=== PATIENT | female | born 1955 | race Caucasian/White ===

== ENCOUNTER 2024-11-18 08:21 | Outpatient (CLI) | payer OTHER, SELFPAY ==
[2024-11-18 08:43] LABS: Hematocrit 40.1 % (37.0-47.0); Hemoglobin 13.0 g/dL (12.0-15.0); Mean Corpuscular HGB Conc 32.4 g/dl (32-36); Mean Corpuscular Hemoglobin 28.7 pg (26-34); Mean Corpuscular Volume 88.5 fl (80-100); Platelet Count Result 269 k/mm3 (150-375); Red Blood Count 4.53 M/mm3 (4.2-5.4); White Blood Count 4.0 K/mm3 (4.5-10.0)
[2024-11-18 09:02] LABS: Alanine Aminotransferase 20 U/L (6-35); Albumin Level 4.2 g/dL (3.5-5.1); Alkaline Phosphatase 63 U/L (38-126); Anion Gap 8 mmol/L (4-12); Aspartate Amino Transferase 33 U/L (14-36); Bilirubin,Total 0.8 mg/dL (0.2-1.3); Blood Urea Nitrogen 11 mg/dL (7-17); Calcium 9.3 mg/dL (8.4-10.2); Carbon Dioxide 25 mmol/L (22-30); Chloride 105 mmol/L (98-107); Estimated Glomerular Filt Rate > 60; Glucose 99 mg/dL (65-110); Potassium 4.2 mmol/L (3.4-5.0); Sodium 138 mmol/L (137-145); Total Protein 7.1 g/dL (6.3-8.2)
[2024-11-18 09:10] LABS: Prealbumin 23.4 mg/dL (17.6-36.0)
[2024-11-18 09:11] LABS: Iron 133 ug/dL (37-170)
[2024-11-21 18:08] LABS: Vit. B1, Whole Blood 75.1 nmol/L (66.5-200.0)
== END 2024-11-18 08:22 | disposition home or self-care (01) ==
LOC: ANHLAB 08:25
PROVIDERS: PCP Family Medicine; Visit Provider Surgery Plastic and Reconstructive Surgery
DX: R63.4 Abnormal weight loss (principal)
CPT/HCPCS: 36415; 80053; 83540; 84134; 84425; 85027

== ENCOUNTER 2024-11-28 07:02 | Outpatient (CLI) | payer OTHER, SELFPAY ==
--- NOTE | 2024-11-28 07:09 | ECG_ITS ---
Test Date: 2024-11-28 07:21:56 Measurements Intervals Fertile Rate: 68 P: 51 IN: 172 QRS: 32 QRSD: 91 T: 48 QT: 398 QTc: 423 Interpretive Statements SINUS RHYTHM BASELINE ARTIFACT- I, II, III, AVR, AVL, AVF, V3 NORMAL ECG No previous ECG available for comparison Electronically Signed On 11-28-2024 07:44:05 CDT by Horacio Xiao D.O.
== END 2024-11-28 07:03 | disposition home or self-care (01) ==
LOC: ANHSURGERY 07:06
PROVIDERS: PCP Family Medicine; Visit Provider Surgery Plastic and Reconstructive Surgery
DX: Z01.818 Encounter for other preprocedural examination (principal); I10 Essential (primary) hypertension
CPT/HCPCS: 93005

== ENCOUNTER 2024-12-05 01:42 | Day surgery (SDC) | payer OTHER, SELFPAY ==
[2024-11-26 10:42] VITALS: BMI 24.9
--- NOTE | 2024-11-26 11:03 | PC.NURSE ---
Report to the Outpatient Waiting Room, entrance under the green pavilion located off [facility], at time __7:00AM on date __12/05/24____. Planned Procedure Time: ___9:00AM____.? Time changes happen often and if your time is changed the preop area will call you the afternoon before. - You and your visitor will be asked to self-screen and do not enter if you have any COVID symptoms. Please call surgeon if you need to reschedule. - A mask is optional within the hospital at this time. Patients may have clear liquids (water, carbonated beverages, clear teas, apple juice) until 3 hours prior to surgery (6:00AM) with a maximum of 20 ounces. - No food from midnight until time of surgery and no smoking, or chewing tobacco (or any form of nicotine). No chewing gum, candy or mints. Take only the following medications with a SIP of water on the morning of surgery: ESCITALOPRAM, METOPROLOL DO NOT STOP ANY OF YOUR OTHER PRESCRIPTION MEDICATIONS PRIOR TO SURGERY EXCEPT THE FOLLOWING Hold all vitamins and supplements for 3 days per anesthesiologist. Medications to discontinue per physician NONE Date to take last dose Please no make-up, nail urdu, hairspray, perfume, deodorant, or body powder the day of surgery.? No jewelry (including any body piercings) or valuables the day of surgery, leave them at home.? Please take a shower or bath the night before, or the morning of, surgery with an antibacterial soap.? Wear comfortable, loose fitting clothing.? - Jewelry must be removed prior to entering the operating room.? Rings and piercings that are not removed may be cut off. - The hospital will not accept responsibility for valuables.? - Please leave all valuables, including medications, at home the day of surgery. If you are going home after surgery, a licensed tier truck driver must drive you home.? - NO public transportation without another adult if you receive anesthesia. - We recommend that an adult stay with you for 24 hours following discharge. - We also recommend that you do not drive, make important decision, drink alcoholic beverages, or take any drugs that were not prescribed by your health care provider for at least 24 hours after your discharge time. Follow any additional instructions given to you from your surgeon. Telephone instructions given to ___PATIENT and asked if any additional questions and then verbalized understanding. Patient advised to call surgeon office or pre surgery nurse liaison [phone] if any additional questions.
[2024-12-05] VITALS (14 sets, daily range): BP systolic 118–198; BP diastolic 47–86; PULSE 62–113; RESP 12–25; TEMP 36.4–36.7; O2SAT 93–100; BMI 25.0
--- NOTE | 2024-12-05 07:14 | P.PNAN_ITS ---
Anes - Initial Pre Proc Eval Procedure: Operation Date: 12/05/24 09:00 Proposed Procedures p Bilateral Brachioplasty - Flex Jimenez MD Date/Time: 12/05/24 07:14 Surgeon: Flex Jimenez MD Pre Op Diagnosis: skin laxity Patient Data Age: 69 Gender: F Height: 1.68 m Weight: 70 kg Allergies Allergy/AdvReac Type Severity Reaction Status Date / Time No Known Allergies Allergy Verified 12/05/24 08:04 Home Medications ?Medication ?Instructions ?Recorded ?Confirmed ?Type sumatriptan succinate 100 mg 100 mg PO ONCE PRN migraine 06/01/21 11/26/24 Rx tablet (Imitrex) headache #9 tabs atorvastatin 10 mg tablet 10 mg PO DAILY #90 tabs 10/17/23 11/26/24 Rx escitalopram oxalate 10 mg tablet 10 mg PO DAILY #90 tabs 03/24/24 12/05/24 Rx (Lexapro) metoprolol succinate 100 mg 100 mg PO DAILY #90 tabs 04/24/24 12/05/24 Rx tablet,extended release 24 hr Patient hx anesthesia problems: post op nausea/vomiting Family hx anesthesia problems: none Results Review: All pre-operative results and documents have been reviewed as part of the pre- operative evaluation. 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 Cologuard screening on 09/10/2022 was negative. Recheck in 3 years Breast cancer screening by mammogram COVID-19 (11/27/20) COVID 19 after fully vaccinated Abnormal fasting glucose Glucose 98 and hemoglobin A1c 5.6 on 05/18/2021. Fasting glucose 98 with hemoglobin A1c 5.6 on 08/14/2022. Glucose 96 with hemoglobin A1c 5.7 on 08/06/2023. GERD (gastroesophageal reflux disease) Vitamin D deficiency, unspecified Level normal at 38.5 on 08/14/2022. Vitamin B12 deficiency anemia B12 level 326 on 05/18/2021. Level low at 223 on 08/14/2022 with hemoglobin 13.2. Level low at 185 on 08/06/2023. Chronic anxiety TSH normal at 3.22 on 08/06/2023. Migraine without aura and without status migrainosus, not intractable Mixed hyperlipidemia total cholesterol 212, HDL 60, triglycerides 62, LDL 139 on 05/18/2021. Total cholesterol 223, triglycerides 111, HDL 62, LDL 141 with ratio of 3.6 on 08/14/2022. cholesterol 226, triglycerides 98, HDL 54, LDL 155 on 08/06/2023 Social History Social History Smoking status: Never smoker Alcohol intake: current Drinks per week: 3 Alcohol use details: beer Substance use: never Substance use type: does not use Lack of Transportation: No Lack of Food: Never True Current Housing: I Have Housing Concerned About Future Housing: No Difficulty Paying Gas/Electric Bills: No Difficulty Paying for Meds: No Currently Unemployed: No Education: Associate Degree Difficulty w/ Childcare or Family Care: No Living arrangements: with family Additional living arrangements comments: [facility] Spiritual care concerns: No Anes - Eval Final PreProcedure Day of Procedure 12/05/24 07:14 Patient weight: overweight Heart: regular rate and rhythm Lungs: clear to auscultation Airway: Mallampati scale class II Neurological: alert and oriented Last oral intake: >/= 8 hours ASA classification: II Emergent: no Anesthetic plan: proceed Anesthesia type and monitoring: general LMA and standard monitoring Results Review: All pre-operative results and documents have been reviewed as part of the pre- operative evaluation. Informed Consent: The patient's anesthetic plan and its attendant risks and benefits were discussed with the patient/family/POA. Questions were solicited and answers provided to the satisfaction of the patient/family/POA.
[2024-12-05] MEDS: TRANEXAMIC ACID 1,000MG/ISO100 1,000 MG/100 ML BAG 200 MG IVPB (07:30)
[2024-12-05] MEDS: LACTATED RINGERS 1,000 ML 30 ML IV CONT ×2 (07:30→11:34)
[2024-12-05] MEDS: SCOPOLAMINE 1 MG PATCH 1 PATCH TRANSDERM (08:15)
--- NOTE | 2024-12-05 08:27 | WPDHPUPDATE1 ---
History and Physical Update Update Date/Time: 12/05/24 08:27 History and Physical has been reviewed, including an updated exam of the patient. There are NO changes in the patient's condition. Risks, benefits, and alternatives have been discussed and questions answered. Patient agrees to proceed with procedure.
--- NOTE | 2024-12-05 08:51 | W.PM.PROC2 ---
Procedure Note - Detailed Date of Procedure 12/05/24 Pre-op Diagnosis skin laxity Post-op Diagnosis Same Procedure Performed Bilateral brachioplasty Surgeon Flex Jimenez MD Anesthesia General Findings Lipoaspirate: 1,200 cc Description of Procedure Here for the above procedures. Preoperatively risks, benefits, alternatives were discussed again today in extensive detail. I want to be very realistic about the risks involved as well as expectations. Made sure answered all of their questions to satisfaction. They voiced a clear understanding. Consent obtained. Patient was marked in the preoperative holding area with their verification. Taken to the operating placed supine on the operating table. Anesthesia was provided by anesthesiology. Prepped and draped in a standard sterile fashion. Surgical time-out was taken. Stab incisions were made and I tumesced with a tumescent solution. Once adequate time for hemostasis suction lipectomy was with a 4 mm basket cannula based on S.A.F.E. technique. This was completed based on preoperative planning, intraoperative observation, and rolling pinch test which was in full agreement. I completely de-fatted the planned resection area and a strip avulsion technique was completed. Starting proximal to distal a 10 blade was used to excise the intervening skin and this was tacked as we proceed to ensure good closure. This was closed using a 2-0 Quill, 3-0 strata fix, running subcuticular 4-0 Monocryl, and Brijjit. Glue placed where Brijjits were not. Dressings were placed. Tolerated the procedure well. Taken to the PACU without difficulty. All instrument sponge counts were correct at the end of the case. Estimated Blood Loss 25 Drains No Packing No Pathology None sent Complications No immediate complications Condition Stable Disposition PACU
[2024-12-05] MEDS: ceFAZolin 2 GM in SODIUM CHLORIDE 0.9% IV 50 ML 100 ML IVPB (09:02)
[2024-12-05] MEDS: LACTATED RINGERS IRRIG 1,000 ML, LIDOCAINE 1% LOCAL INJ 50 ML, EPINEPHrine HCL INJ 1 MG... INFILTRATE (09:42)
[2024-12-05] MEDS: ONDANSETRON INJ 4 MG/2 ML VIAL IV PUSH (11:42)
[2024-12-05] MEDS: oxyCODONE HCL (*CRX) 5 MG TAB IR PO (13:25)
[2024-12-05] MEDS: MIDAZOLAM HCL (*CRX) 2 MG/2 ML VIAL 1 MG IV PUSH (14:08)
== END 2024-12-05 15:20 | disposition home or self-care (01) ==
PROVIDERS: PCP Family Medicine; Visit Provider Surgery Plastic and Reconstructive Surgery
PROC: (CPT 15836; principal; 2024-12-05 09:00)
DX: Z41.1 Encounter for cosmetic surgery (principal); L57.4 Cutis laxa senilis; I10 Essential (primary) hypertension; K21.9 Gastro-esophageal reflux disease without esophagitis; E55.9 Vitamin D deficiency, unspecified; E78.2 Mixed hyperlipidemia; N32.81 Overactive bladder; E53.8 Deficiency of other specified B group vitamins; F41.9 Anxiety disorder, unspecified; M62.838 Other muscle spasm; Z98.890 Other specified postprocedural states
CPT/HCPCS: 15878; 15836; 80307; J0690; A9270; J0166; J0360; J1100; J1171; J1200; J2003; J2250; J2405; J2704; J3010; J7120